=== PATIENT | male | born 1965 | race Caucasian/White ===

== ENCOUNTER 2019-04-25 12:13 | Day surgery (SDC) | payer BC ==
[2019-04-25] MEDS ORDERED: PROPOFOL 60 ML (14:59)
[2019-04-25] MEDS ORDERED: LIDOCAINE 2% (SDV) 5 ML INJ (14:59)
== END 2019-04-25 16:06 | disposition home or self-care (01) ==
LOC: GIL 12:13
DX: K92.1 Melena (principal); D12.5 Benign neoplasm of sigmoid colon; K29.80 Duodenitis without bleeding
CPT/HCPCS: 43239; 88305